=== PATIENT | female | born 1960 | race African-American/Black ===

== ENCOUNTER 2016-08-17 15:37 | Inpatient (IN) | payer MEDICARE ==
[~2016-08-17] VITALS: Ht 160 cm; Wt 66.5 kg
[2016-08-17] MEDS ORDERED: ZOCOR40 MG PO (16:28)
[2016-08-17] MEDS ORDERED: ZESTORETIC 20-1 EACH PO (16:28)
[2016-08-17 16:29] VITALS: BP 142/84
[2016-08-17] MEDS ORDERED: LYRICA75 MG PO (16:29)
[2016-08-17] MEDS ORDERED: AMOXICILLIN500 M1 PO (16:29)
[2016-08-17 16:53] LABS: BASOPHILS 0.3 % (0.0-2.0); EOSINOPHILS 0 % (0-7); HEMATOCRIT 38.8 % (36.0-48.0); HEMOGLOBIN 12.6 g/dL (12-16); IMMATURE GRANULOCYTES 0.2 % (0-5); LYMPHOCYTES 15.6 % (15-50); MCH 29.5 pg (26.0-34.0); MCHC 32.5 g/dL (31.0-37.0); MCV 90.9 fL (80.0-100.0); MEAN PLATELET VOLUME 11.8 fL (7.4-10.4); MONOCYTES 11.1 % (2-11); NEUTROPHILS 72.8 % (40-80); PLATELET COUNT 335 10x3/uL (130-400); RBC 4.27 10x6/uL (4.00-5.40); WBC 10.3 10x3/uL (4.8-10.8)
--- NOTE | 2016-08-17 17:06 | NUR ---
PT TO FLOOR. ADMISSION COMPLETE. CANNOT ACCESS PIV SITE. ASKED ANGI FOSTER RN TO SITE PT.
--- NOTE | 2016-08-17 17:11 | NUR ---
ANGI SITED PT TO LEFT FA 22G X1 STICK.
[2016-08-17 17:28] LABS: ANION GAP 18.8 mmol/L (8-16); CALCIUM 10.3 mg/dL (8.5-10.1); CARBON DIOXIDE 25.9 mmol/L (21.0-32.0); CREATININE - SERUM 1.6 mg/dL (0.6-1.3); POTASSIUM - SERUM 3.7 mmol/L (3.5-5.1)
--- NOTE | 2016-08-17 20:35 | NUR ---
PT RESTING IN BED. ALERT/ORIENTED. INCREASED SALIVATION, WITH FREQUENT SPITTING OUT TO CLEAR HER MOUTH. CAN HAVE FULL LIQUIDS, BUT SAYS SHE CANNOT SWALLOW EVEN CLEAR LIQUIDS. IV TO LFA WITH D5.45NS @ 90ML/HR INFUSING. NONLABORED RESPIRATIONS ON ROOM AIR. SEE ASSESSMENT. CPOC.
[2016-08-17 22:07] VITALS: BP 142/84
[2016-08-18 01:57] VITALS: BP 126/70
[2016-08-18 05:26] VITALS: BP 106/53
[2016-08-18 08:00] VITALS: BP 114/63
--- NOTE | 2016-08-18 08:36 | NUR ---
ASSESSMENT DONE. PT A/O. DENIES DIFFICULTY BREATHING. DYSPHAGIA STABLE. UNABLE TO SWALLOW OWN SALIVA. CALL LIGHT WITH IN REACH. WILL CONT. TO MONITOR.
--- NOTE | 2016-08-18 09:19 | NUR ---
RESTS WITH EYES CLOSED. IV PATENT. WILL MONITOR NEEDS.
--- NOTE | 2016-08-18 10:08 | HP ---
PATIENT: KATELYNN ZIEGLER MEDICAL RECORD: [id number] ACCOUNT: [id number] LOCATION:[address] : 56 ADMISSION DATE: 08/17/16 HISTORY AND PHYSICAL EXAMINATION Admission History and Physical HISTORY OF PRESENT ILLNESS: Katelynn is a 56-year-old female who 3 days ago woke up with a sore throat that progressed to a very painful sore throat, which points to about her Mac's apple, says it is painful and she cannot swallow. She has not had too much pain at rest, but she is unable to swallow secretions. She was given some medications, but cannot swallow any medications since she has not been able to drink any liquids for at least the past 2 days and certainly cannot swallow foods. She did not have any fever, chills or systemic symptoms, just this throat pain and difficulty swallowing. PAST MEDICAL HISTORY: Includes hypertension. PAST SURGICAL HISTORY: Includes hysterectomy and cervical disc replacement. CURRENT MEDICATIONS: Lisinopril, simvastatin, Lyrica, amoxicillin, but she has not taking those because she cannot swallow in the past couple of days. ALLERGIES: No known drug allergies. PHYSICAL EXAMINATION: GENERAL: She is a healthy, alert and oriented. She is a good historian. She has a normal voice, but no stridor or stertor at all. She does spit her secretions, but is not in any distress. EYES: Her eyes are normal. Sclerae and conjunctivae are normal. EARS: Canals and TMs are normal. NOSE: No mass, polyps or drainage. ORAL CAVITY AND OROPHARYNX: No trismus. Tongue protrudes in midline. Palate and pharynx, tonsil tissues, all normal. No inflammation. Base of tongue all is visible was normal. NECK: No masses, no adenopathy. CHEST: Clear. CARDIOVASCULAR: Regular rate and rhythm, no murmur. EXTREMITIES: Normal. Flexible laryngoscopy through the nose. After decongestion with Afrin and lidocaine nasal cavity, and nasopharynx normal. Hypopharynx is normal. The cords are normal. She has a good airway. She has got erythema and a yellow exudate and inflammatory changes along the leading edge of the epiglottis really looks like a bacterial epiglottitis, no abscess. It really does not look like angioedema at all. The rest of the supraglottic larynx is all normally at A-folds, the cords and subglottis were all normal. IMPRESSION: Supraglottitis. I cannot rule out neoplasm, but the history with the pain and acute onset and the appearance looks more infections. I am going to admit her for IV fluids, IV antibiotics, get some labs and followup over the next couple of days and see if she improves, but she needed IV fluids because she cannot swallow at all. TRANSINT:[id number] Voice Confirmation ID: [id number] DOCUMENT ID: [id number] HISTORY AND PHYSICAL [id number] KATELYNN ZIEGLER ERIC MD at 1008 CC: [id number] DICTATION DATE: 08/17/16 1635 JUKEBOX COIN COLLECTOR: 08/17/16 1920 ADM IN [place] [address] [place] [address]
--- NOTE | 2016-08-18 10:46 | NUR ---
PT SITTING UP IN ROOM VISITING WITH SPOUSE. NO DISTRESS NOTED. REQUEST MORE LEMON SWABS FOR MOUTH. WILL CONT. TO MONITOR.
[2016-08-18 11:23] VITALS: BP 113/52
[2016-08-18 12:00] VITALS: Ht 160 cm; Wt 66.5 kg
[2016-08-18 15:28] VITALS: BP 106/52
--- NOTE | 2016-08-18 18:09 | NUR ---
PT SITTING ON SIDE OF BED EATING SUPPER. TOLERING WELL. STATES SWOLLOWING IS IMPROVING. CALL LIGHT WITH IN REACH. WILL CONT. TO MONITOR.
--- NOTE | 2016-08-18 19:00 | NUR ---
RECEIVED REPORT AND ASSUMED PT CARE FROM DAY SHIFT NURSE @ THIS TIME.
[2016-08-18 20:00] VITALS: BP 121/71
--- NOTE | 2016-08-18 23:22 | NUR ---
IVF'S STOPPED PER PT REQUEST FOR A SHOWER. LINENS CHANGED. PT SHOWERS INDEPENDENTLY. RECONNECTED TO IVF'S ORDERED. WILL CONT TO MONITOR.
[2016-08-19] VITALS: BP 113/64
[2016-08-19 04:00] VITALS: BP 94/46
[2016-08-19 09:52] VITALS: BP 112/65
--- NOTE | 2016-08-19 11:42 | NUR ---
RESTING QUIETLY THIS AM. CO SOME DIFFICUTLY IN SWALLOWING. WILL CONTINE TO MONITOR.
[2016-08-19 12:49] LABS: BASOPHILS 0.1 % (0.0-2.0); EOSINOPHILS 0 % (0-7); HEMATOCRIT 34.1 % (36.0-48.0); IMMATURE GRANULOCYTES 0.3 % (0-5); LYMPHOCYTES 19.4 % (15-50); MCHC 32.3 g/dL (31.0-37.0); MONOCYTES 8.5 % (2-11); NEUTROPHILS 71.7 % (40-80); PLATELET COUNT 316 10x3/uL (130-400); RBC 3.79 10x6/uL (4.00-5.40); RDW 14.1 % (11.5-14.5)
[2016-08-19 12:52] LABS: WBC 14.1 10x3/uL (4.8-10.8)
[2016-08-19 13:07] LABS: ALBUMIN 3.7 g/dL (3.4-5.0); ANION GAP 14.4 mmol/L (8-16); BILIRUBIN - TOTAL 0.26 mg/dL (0.2-1.3); CALCIUM 9.5 mg/dL (8.5-10.1); CARBON DIOXIDE 27.8 mmol/L (21.0-32.0); POTASSIUM - SERUM 3.2 mmol/L (3.5-5.1); PROTEIN - SERUM 8.8 g/dL (6.4-8.2)
[2016-08-19 13:19] VITALS: BP 109/65
--- NOTE | 2016-08-19 15:27 | NUR ---
Patient Name: KATELYNN ZIEGLER Admission Status: Urgent Accout number: [id number] Admission Date: 08-17-2016 : 1960 Admission Diagnosis:DYSPHAGIA, UNSPECIFIED Attending: MICHI Current LOS: 2 Anticipated DC Date: Planned Disposition: Home Primary Insurance: MEDICARE A & B Discharge Planning Comments: * Is the patient Alert and Oriented? Yes 0 * How many steps to enter\exit or inside your home? 2 0 * PCP [facility] 0 * Pharmacy [facility] 0 * Preadmission Environment Home with Family 0 * ADLs Independent 0 * Equipment None 0 * Other Equipment NO MEDICAL EQUIPMENT PROVIDER PREFERENCE 0 * List name and contact numbers for known caregivers / representatives who currently or will assist patient after discharge: ROSALES ZIEGLER, SPOUSE, 0 * Community resources currently utilized None 0 * Please name any agencies selected above. NONE 0 * Additional services required to return to the preadmission environment? No 0 * Can the patient safely return to the preadmission environment? Yes 0 * Has this patient been hospitalized within the prior 30 days at any hospital? No 0 CM MET WITH PT IN ROOM TO DISCUSS DISCHARGE PLANNING AND NEEDS. PT REPORTS LIVING AT HOME INDEPENDENTLY WITH HER SPOUSE. PT HAS NO MEDICAL EQUIPMENT AND NO OUTSIDE SERVICES ASSISTING IN THE HOME. CM DISCUSSED AVAILABILITY OF HOME HEALTH, REHAB SERVICES AND MEDICAL EQUIPMENT. PT DENIES DISCHARGE NEEDS, REPORTS HER SPOUSE WILL PICK HER UP FOR DISCHARGE HOME. IMPORTANT MESSAGE FROM [employer] PROVIDED AND EXPLAINED. Business Operations Manager: Carlos Butler
[2016-08-19 16:38] VITALS: BP 121/61
--- NOTE | 2016-08-19 19:00 | NUR ---
RECEIVED REPORT AND ASSUMED PT CARE FROM DAY SHIFT NURSE @ THIS TIME.
--- NOTE | 2016-08-19 20:45 | NUR ---
DR GRACE CALLS FLOOR, ENQUIRES ABOUT PT'S LABS. NOTIFIED OF PT'S HYPOKALEMIA FROM THIS AM'S LABS. NEW ORDERS RECEIVED TO ADD 20 MEQ KCL TO EACH LITER OF IVF AND TO DECREASE THE RATE TO 70 ML/HR. PT UPDATED ON POC AND VERBALIZES UNDERSTANDING.
[2016-08-19 21:44] VITALS: BP 117/64
[2016-08-20 00:35] VITALS: BP 100/50
[2016-08-20 04:36] VITALS: BP 110/68
--- NOTE | 2016-08-20 07:44 | NUR ---
ASSESSMENT COMPLETED. LEFT ARM IV WITH D5.5NS WITH 20 MEQ KCL AT 70. DENIES ANY NEEDS. SR UP WITH CALL LIGHT IN REACH. WILL MONITOR
[2016-08-20 08:00] VITALS: BP 107/59
--- NOTE | 2016-08-20 10:46 | NUR ---
LYING QUIQETY. DENIES ANY NEEDS. CALL LIGHT IN REACH WITH SR UP. WILL MONITOR
[2016-08-20 12:00] VITALS: BP 94/54
--- NOTE | 2016-08-20 12:40 | NUR ---
UP FOR DIET. DENIES ANY NEEDS. IV INFUSING WELL. WILL MONITOR
[2016-08-20 16:00] VITALS: BP 103/52
--- NOTE | 2016-08-20 17:51 | NUR ---
DR. GRACE HERE. PLANS FOR DISCHARGE IN AM. DENIES ANY NEEDS. WILL MONITOR
--- NOTE | 2016-08-20 18:47 | NUR ---
RESTING QUIETLY NAD NOTED
--- NOTE | 2016-08-20 19:42 | NUR ---
DR GRACE'S SERVICE CALLED. INFORMED PT UNABLE TO GET RIDE HOME UNTIL AM. INFORMED THE MESSAGE WILL BE PASSED ON TO DR GRACE.
[2016-08-20 20:30] VITALS: BP 106/50
--- NOTE | 2016-08-20 23:14 | NUR ---
ASSESSMENT COMPLETED AT 2000 HRS. VSS. IV TO RFA WITH D51/2NS WITH 20 MEQ KCL AT 70CC/HR. IV PATENT. LUNGS CTA. DENIES ANY DIFFICULTY SWALLOWING. PT CURRENTLY RESTING WITH EYES CLOSED. RESP EVEN AND REGULAR. SR UP X2, CALL LIGHT WITHIN REACH.
[2016-08-21 00:30] VITALS: BP 112/66
--- NOTE | 2016-08-21 03:04 | NUR ---
PT RESTING WITH EYES CLOSED. RESP EVEN AND REGULAR. SR UP X2, CALL LIGHT WITHIN REACH.
[2016-08-21 04:30] VITALS: BP 118/67
--- NOTE | 2016-08-21 05:15 | NUR ---
VSS THROUGHOUT NIGHT. PT DENIED ANY DISCOMFORT. NEEDS MET; WILL CONTINUE TO MONITOR.
--- NOTE | 2016-08-21 07:35 | NUR ---
ASSESSMENT COMPLETED. PT IS ON ROOM AIR.. IV OF D5 1/2NS WITH 20 OF KCL AT 70 INFUSING INTO RIGHT FA. DENIES ANY NEEDS. UP AB ELISEO. WILL MONITOR
[2016-08-21 08:00] VITALS: BP 118/62
[2016-08-21] MEDS ORDERED: STERAPRED 5MG 65 M1 PO (08:15)
--- NOTE | 2016-08-21 11:03 | NUR ---
RESTING QUIETLY RESP UNLABORED NAD NOTED
--- NOTE | 2016-08-21 11:30 | NUR ---
PT DISCHARGED. IV DCD. TO PRIVATE CAR PER WHEELCHAIR.
[2016-08-22 14:15] LABS: ANA REFLEX - DIRECT Negative (Negative)
[2016-08-22 17:11] LABS: ANCA - ANTIMYELOPEROXIDASE <9.0 U/mL (0.0-9.0); ANCA - ANTIPROTEINASE 3 <3.5 U/mL (0.0-3.5); ANCA - ATYPICAL <1:20 titer (Neg:<1:20); ANCA - CYTOPLASMIC <1:20 titer (Neg:<1:20); ANCA - PERINUCLEAR <1:20 titer (Neg:<1:20)
--- NOTE | 2016-10-03 13:10 | DS ---
PATIENT:KATELYNN ZIEGLER :56 MEDICAL RECORD: [id number] DISCHARGE SUMMARY ADMISSION DATE: 08/17/16 DISCHARGE DATE: 08/21/16 DATE OF ADMISSION: 08/17/2016 DATE OF DISCHARGE: 08/21/2016 HOSPITAL COURSE: Mrs. Ziegler is a 56-year-old female who presented with pharyngitis and dysphagia. She was admitted with a diagnosis of supraglottitis and started on IV antibiotics, fluids and steroids. She had an elevated white count of 14,000 on admission. She is afebrile, but had a bright red erythematous epiglottis and she responded slowly. Initially, I considered the possibility that she might have had a autoimmune chondritis, but lab work which really are negative. After several days that she start to improve and eventually was able to take some liquids and then started taking a regular diet with soft foods. She is afebrile, stable. She never really had any voice or airway problems, just the pain and odynophagia and can be managed as an outpatient due to that, but on 08/21/2016, as she is taking p.o. well, she was to resume her antibiotics and follow up in a week in my clinic. She is to resume all her home medications as well. TRANSINT:[id number] Voice Confirmation ID: [id number] DOCUMENT ID: [id number] EUN GRACE MD at 1310 CC: [id number] DICTATION DATE: 09/05/16 1335 DAY CARE WORKER: 09/06/16 0224 DIS IN 08/21/[address] [address]
== END 2016-08-21 11:30 | disposition home or self-care (01) | DRG 153 ==
LOC: D.M2 15:37
PROVIDERS: ADMIT Otolaryngology
DX: J04.30 Supraglottitis, unspecified, without obstruction (principal); I10 Essential (primary) hypertension